=== PATIENT | male | born 1980 | race Two or more races ===

== ENCOUNTER 2024-07-07 04:20 | Emergency (ER) | payer MEDICAID, OTHER ==
[~2024-07-07] VITALS: Ht 190.5 cm; Wt 111.3 kg
[2024-07-07 04:30] VITALS: BP 124/74; PULSE 98; RESP 14; O2SAT 97
[2024-07-07] MEDS: TETRACAINE HCL 0.5% OPTH(EYE) SOLN 4ML EACHEYE ONE (04:58)
[2024-07-07] MEDS: FLUORESCEIN SOD OPTH TEST STRIP EACHEYE ONE (04:58)
[2024-07-07] MEDS ORDERED: ERY05OO OP (05:25)
--- NOTE | 2024-07-07 05:28 | ED.PDOC ---
Eye-HPI HPI Comments 44 YEAR OLD MALE PRESENTS TO ER WITH RIGHT EYE COMPLAINT X 1 DAY. PATIENT STATES THAT "LIMESTONE DUST DEBRIS" FLEW AND WENT INTO HIS RIGHT EYE AT WORK AT 3 A.M. PRIOR TO ARRIVAL TO ER AND HAS SINCE BEEN EXPERIENCING RIGHT EYE IRRITATION, REDNESS AND 6/10 BURNING PAIN TO RIGHT EYE. NOTES HE WAS WEARING "PROTECTIVE EYEWEAR" AT ONSET OF SYMPTOMS AND STATES HE FLUSHED HIS RIGHT EYE OUT WITH WATER SEVERAL TIMES WITH SLIGHT RELIEF. PATIENT PRESENTS TO ER, AMBULATORY ON ARRIVAL, WITH STEADY GAIT, IN NO DISTRESS. DENIES SKIN CHANGES, VISION CHANGES, USE OF CONTACTS/GLASSES OR ANY FURTHER SYMPTOMS/COMPLAINTS Chief Complaint: Foreign Body Time Seen by MD: 04:37 Primary Care Provider: UNKNOWN Reviewed Notes: Nurses Notes, Medications, Allergies Allergies: Coded Allergies: Penicillins (Unverified Allergy, Unknown, 11/23/14) Home Meds Active Scripts Erythromycin (Erythromycin) 5 Mg/Gm Oin, 1 MG OP 6XD for 7 Days, #1 OIN Prov:LATASHA MARTINEZ 07/07/24 Information Source: Patient Mode of Arrival: Ambulatory Past Medical History PAST MEDICAL HISTORY: Denies Surgical History: Appendectomy Family History Family History: Unknown Social History Smoker: Quit Greater Than 1 Year, Cigarettes Alcohol: Denies ETOH Use Drugs: Denies Drug Use Lives In: Home Constitutional: denies: chills, diaphoresis, fatigue, fever, malaise, sweats, weakness, others EENTM: reports: others ( STATED IN HPI) Respiratory: denies: cough, hemoptysis, orthopnea, SOB at rest, shortness of breath, SOB with excertion, stridor, wheezing, others Cardiovascular: denies: chest pain, dizzy spells, diaphoresis, Dyspnea on exertion, edema, irregular heart beat, left arm pain, lightheadedness, palpitations, PND, syncope, others Gastrointestinal: denies: abdomen distended, abdominal pain, blood streaked bowels, constipated, diarrhea, dysphagia, difficulty swallowing, hematemesis, melena, nausea, poor appetite, poor fluid intake, rectal bleeding, rectal pain, vomiting, others Genitourinary: denies: burning, dysuria, flank pain, frequency, hematuria, incontinence, penile discharge, penile sore, pain, testicle pain, testicle swel ling, urgency, others Neurological: denies: dizziness, fainting, headache, left sided numbness, left sided weakness, numbness, paresthesia, pre-existing deficit, right sided numbness, right sided weakness, seizure, speech problems, tingling, tremors, weakness, others Musculoskeletal: denies: back pain, gout, joint pain, joint swelling, muscle pain, muscle stiffness, neck pain, others Integumetry: denies: bruises, change in color, change in hair/nails, dryness, laceration, lesions, lumps, rash, wounds, others Allergic/Immunocompromised: denies: Difficulty Healing, Frequent Infections, Hives, Itching, others Hematologic/Lymphatic: denies: anemia, blood clots, easy bleeding, easy bruising, swollen glands, others Endocrine: denies: excessive hunger, excessive sweating, excessive thirst, excessive urination, flushing, intolerance to cold, intolerance to heat, unexplained weight gain, unexplained weight loss, others Psychiatric: denies: anxiety, bipolar disorder, depression, hopeless, panic disorder, schizophrenia, sleepless, suicidal, others Physical Exam General Appearance: No Apparent Distress, Obese HEENT: PERRL/EOMI, Pharynx Normal, TMs Normal, Other (WOODSLAMP EXAMINATION RIGHT EYE-MILD SUBCONJUNCTIVAL INJECTION AND MINIMAL CLEAR DRAINAGE, NO CORNEAL ABRASION/FOREIGN BODY NOTED. NO SKIN CHANGES TO RIGHT EYE APPRECIATED) Neck: Full Range of Motion, Non-Tender, Normal Respiratory: Chest Non-Tender, Lungs Clear, No Accessory Muscle Use, No Respiratory Distress, Normal Breath Sounds Cardiovascular: No Murmur, No Gallop, Regular Rate/Rhythm Breast Exam: Deferred Gastrointestinal: NOT DONE Genitalia: Deferred Pelvic: Deferred Rectal: Deferred Extremities: Normal capillary refill, Normal range of motion Neurologic: Alert, No Motor Deficits, Normal Affect, Normal Mood, No Sensory Deficits Cerebellar Function: Normal Reflexes: Normal Skin: Dry, Normal Color, Warm Lymphatic: No Adenopathy Was a procedure done? Was a procedure done?: No Sedation Sedation?: No EENT DIFF Eye: Corneal Abrasion, Foreign Body-Corneal, Orbital Cellulits, Periorbital Cellulits X-Ray, Labs, Meds, VS Vital Signs Date Time Temp Pulse Resp B/P (MAP) Pulse Ox O2 Delivery O2 Flow Rate FiO2 07/07/24 04:30 97.9 98 14 124/74 (91) 97 Current Medications Medications (Trade) Dose Ordered Sig/Aishwarya Route Start Time Stop Time Status Last Admin Tetracaine HCl (Tetracaine 0.5% Opth Soln) 1 drop ONCE ONCE EACHEYE 07/07/24 04:45 07/07/24 04:53 DC 07/07/24 04:58 Fluorescein Sodium (Ful-Patricia) 1 mg ONCE ONCE EACHEYE 07/07/24 04:45 07/07/24 04:53 DC 07/07/24 04:58 TETRACAINE OPHTHALMIC ORDERED FLUORESCEIN STAIN OPHTHALMIC ORDERED [facility] FILLED OUT ADVISED TO FOLLOW UP WITH PCP, [facility] PCP AND OPHTHALMOLOGY IN 1-2 DAYS PATIENT VERBALIZED UNDERSTANDING AND AGREEABLE WITH CURRENT PLAN OF CARE ADVISED TO RETURN TO ER IMMEDIATELY IF SYMPTOMS WORSEN Time of 1ST Reevaluation: 05:02 Reevaluation 1ST: N/A Patient Education/Counseling: Diagnosis, Treatment, Prognosis, Need For Follow Up Family Education/Counseling: No Family Present Departure 1 Departure Time of Disposition: 05:22 Impression: Primary Impression: Foreign body of right eye Qualified Codes: T15.91XA - Foreign body on external eye, part unspecified, right eye, initial encounter Disposition: 01 HOME / SELF CARE / HOMELESS Condition: Stable e-Prescriptions Erythromycin (Erythromycin) 5 Mg/Gm Oin 1 MG OP 6XD for 7 Days, #1 OIN Prov: LATASHA MARTINEZ 07/07/24 Discharged With: Self Critical Care Note Critical Care Time?: No Stability Stability form required: No Heart Score Heart Score: Heart Score Response (Comments) Value History N/A 0 EKG N/A 0 Age N/A 0 Risk Factors N/A 0 Troponin N/A 0 Total 0 LATASHA MARTINEZ Jul 07, 2024 05:28
== END 2024-07-07 05:43 | disposition home or self-care (01) ==
LOC: ER 04:20
DX: T15.91XA Foreign body on external eye, part unspecified, right eye, initial encounter (principal); Z90.49 Acquired absence of other specified parts of digestive tract; Z88.0 Allergy status to penicillin; W44.9XXA Unspecified foreign body entering into or through a natural orifice, initial encounter; X58.XXXA Exposure to other specified factors, initial encounter; Y93.89 Activity, other specified; Y92.89 Other specified places as the place of occurrence of the external cause; Y99.8 Other external cause status